=== PATIENT | female | born 1960 | race Caucasian/White ===

== ENCOUNTER 2020-10-15 16:12 | Observation (INO) | payer MEDICARE, MEDICAID ==
[~2020-10-15] VITALS: Ht 157.5 cm; Wt 60.9 kg
[2020-10-16] MEDS ORDERED: BISACODYL 10 MG SUPP PR PRN (14:30)
[2020-10-16] MEDS ORDERED: POLYETHYLENE GLYCOL 17 GM PACKET PO PRN (14:30)
[2020-10-16] MEDS ORDERED: DOCUSATE 100 MG CAPSULE PO PRN (14:30)
[2020-10-16] MEDS ORDERED: ONDANSETRON ODT 4 MG PO PRN (14:30)
[2020-10-16] MEDS ORDERED: ACETAMINOPHEN 325 MG TABLET PO PRN (14:30)
[2020-10-17 02:22] VITALS: BP 150/99
[2020-10-17 02:26] VITALS: BP 150/99
[2020-10-17 02:34] VITALS: BP 150/99
[2020-10-17 06:15] LABS: BASOPHILS % (AUTO) 0 % (0-1); EOSINOPHILS % (AUTO) 0 % (1-7); LYMPHOCYTES % (AUTO) 12 % (22-44); MEAN CORPUSCULAR HEMOGLOBIN 32.7 pg (27.0-34.8); MEAN CORPUSCULAR HGB CONC 33.5 g/dL (32.4-35.8); MEAN PLATELET VOLUME 7.8 fL (7.4-10.4); MONOCYTES % (AUTO) 9 % (2-9); NEUTROPHILS % (AUTO) 79 % (42-75); PLATELET COUNT 326 x10^3/uL (130-400); RED BLOOD COUNT 5.34 x10^6/uL (3.82-5.3); RED CELL DISTRIBUTION WIDTH 15.4 % (9.6-15.2)
[2020-10-17 06:16] LABS: MD NO
[2020-10-17 06:37] LABS: ALBUMIN 2.9 g/dL (3.4-5.0); ANION GAP 7 mmol/L (5-15); CALCIUM 9.4 mg/dL (8.5-10.1); CHLORIDE 104 mmol/L (98-107)
[2020-10-17 06:45] LABS: ALANINE AMINOTRANSFERASE 89 U/L (12-78); ALKALINE PHOSPHATASE 134 U/L (45-117); BILIRUBIN,TOTAL 0.6 mg/dL (0.2-1.0); CHOLESTEROL, TOTAL 162 mg/dL (140-239); CREATININE 0.51 mg/dL (0.55-1.02); FREE T4 (FREE THYROXINE) 1.45 ng/dL (0.76-1.46); HDL CHOL % 25 % (28-40); HDL CHOLESTEROL (DIRECT) 41 mg/dL (40-60); LDL CHOLESTEROL,CALCULATED 108 mg/dL (54-169); LDL/HDL RATIO 2.6 (0.5-3.0); TOTAL PROTEIN 8.3 g/dL (6.4-8.2); TRIGLYCERIDES 64 mg/dL (50-200); VLDL CHOLESTEROL 13 mg/dL (0-25)
[2020-10-17 07:41] VITALS: BP 142/98
[2020-10-17] MEDS ORDERED: ACETAMINOPHEN 325 MG TABLET PO PRN (08:00)
[2020-10-17] MEDS ORDERED: HEPARIN 5,000 UNITS/ML, 1ML SQ SCH (08:00)
[2020-10-17] MEDS ORDERED: DOCUSATE 100 MG CAPSULE PO PRN (08:00)
[2020-10-17] MEDS ORDERED: POLYETHYLENE GLYCOL 17 GM PACKET PO PRN (08:00)
[2020-10-17] MEDS ORDERED: BISACODYL 10 MG SUPP PR PRN (08:00)
[2020-10-17 09:25] LABS: INTERNATIONAL NORMALIZED RATIO 2.03 (0.93-1.1); PROTHROMBIN TIME 21.4 Seconds (9.6-11.5)
[2020-10-17 09:29] LABS: CREATINE KINASE, TOTAL 52 U/L (26-192)
[2020-10-17] MEDS ORDERED: ESOM40CA48 PO (11:22)
[2020-10-17] MEDS ORDERED: PARO20TA98 PO (11:26)
== END 2020-10-17 08:17 | disposition home or self-care (01) ==
LOC: 3E 10-17 00:05 → INTOOBSV 10-17 00:05 → UNDODISIN 10-17 08:17
PROVIDERS: ADMIT Psychiatry & Neurology Psychosomatic Medicine; ATTEND Psychiatry & Neurology Psychosomatic Medicine
DX: R00.0 Tachycardia, unspecified (principal); R61 Generalized hyperhidrosis; R53.1 Weakness; R47.01 Aphasia; R13.10 Dysphagia, unspecified; J96.01 Acute respiratory failure with hypoxia; E86.0 Dehydration; G93.41 Metabolic encephalopathy; R74.01 Elevation of levels of liver transaminase levels; K21.9 Gastro-esophageal reflux disease without esophagitis; F32.9 Major depressive disorder, single episode, unspecified; F19.10 Other psychoactive substance abuse, uncomplicated; Z79.899 Other long term (current) drug therapy; Z86.19 Personal history of other infectious and parasitic diseases
CPT/HCPCS: 36415; 71045; 80053; 80061; 82140; 82550; 82607; 83735; 84100; 84439; 84443; 84484; 85025; 85610; 87040; 93005; 93922; G0378